=== PATIENT | female | born 1995 | race Two or more races ===

== ENCOUNTER 2021-08-16 09:29 | Emergency (ER) | payer BC, OTHER ==
[~2021-08-16] VITALS: Ht 160 cm; Wt 86.2 kg
[2021-08-16 09:32] VITALS: BP 112/82
[2021-08-16] MEDS ORDERED: IBUPROFEN 600 MG TAB PO ONE ×2 (09:40→09:45)
[2021-08-16] MEDS ORDERED: ONDANSETRON ODT 4 MG TAB PO ONE (11:30)
[2021-08-16] MEDS ORDERED: ACETAMINOPHEN/CODEINE#3 (300/30mg) TAB PO ONE (11:30)
== END 2021-08-16 13:02 | disposition home or self-care (01) ==
LOC: ER 09:29 → EDBD 09:29 → ER 12:55
DX: S52.501A Unspecified fracture of the lower end of right radius, initial encounter for closed fracture (principal); V43.52XA Car driver injured in collision with other type car in traffic accident, initial encounter; Y93.89 Activity, other specified; Y92.410 Unspecified street and highway as the place of occurrence of the external cause; Y99.8 Other external cause status
CPT/HCPCS: 29125; 73110; 73200; 99284; Q0162